=== PATIENT | male | born 1960 | race Caucasian/White ===

== ENCOUNTER → 2018-11-12 | Outpatient (CLI) | payer BC ==
--- NOTE | 2018-11-12 15:55 | PCVCIMAG ---
APPROVED REPORT Study performed: 11/12/2018 14:41:41 EXAM: Comprehensive 2D, Doppler, and color-flow Echocardiogram Patient Location: Echo lab Status: routine BSA: 2.46 HR: 60 bpmBP: 140/100 mmHg Rhythm: NSR Other Information Study Quality: Technically Difficult Indications Palpitations Hypertension/HDD Dizziness 2D Dimensions IVSd: 12.14 (7-11mm)LVOT Diam: 21.37 (18-24mm) LVDd: 44.57 mm PWd: 8.41 (7-11mm)Ascending Ao: 37.48 (22-36mm) LVDs: 23.44 (25-40mm) Left Atrium: 33.66 (27-40mm) Aortic Root: 34.18 mm LV Single Plane 4CH: 56.79 % LV Single Plane 2CH: 56.65 % Biplane EF: 57.8 % Volumes Left Atrial Volume (Systole) Single Plane 4CH: 26.47 mLSingle Plane 2CH: 48.02 mL LA ESV Index: 13.00 mL/m2 Aortic Valve AoV Peak Burak.: 1.58 m/s AO Peak Gr.: 9.95 mmHg Mitral Valve E/A Ratio: 1.2 MV Decel. Time: 212.97 ms MV E Max Burak.: 0.78 m/s MV A Burak.: 0.65 m/s Pulmonary Valve PV Peak Gr.: 1.78 mmHg Pulmonary Vein P Vein S: 0.45 m/sP Vein A: 0.31 m/s P Vein D: 0.38 m/sP Vein A Dur.: 86.5 msec P Vein S/D Ratio: 1.18 Left Ventricle The left ventricle is normal size. There is normal LV segmental wall motion. There is normal left ventricular wall thickness. Left ventricular systolic function is normal. The left ventricular ejection fraction is within the normal range. LVEF is 55-60%. The left ventricular diastolic function is normal. Right Ventricle The right ventricle is normal size. The right ventricular systolic function is normal. Atria The left atrium size is normal. The right atrium size is normal. Aortic Valve The aortic valve is normal in structure. No aortic regurgitation is present. There is no aortic valvular stenosis. Mitral Valve The mitral valve is normal in structure. There is no mitral valve regurgitation noted. No evidence of mitral valve stenosis. Tricuspid Valve The tricuspid valve is normal in structure. There is no tricuspid valve regurgitation noted. Pulmonic Valve The pulmonary valve is normal in structure. There is no pulmonic valvular regurgitation. Great Vessels The aortic root is normal in size. IVC is normal in size and collapses >50% with inspiration. Pericardium There is no pericardial effusion. <Conclusion> The left ventricle is normal size. There is normal left ventricular wall thickness. Left ventricular systolic function is normal. The left ventricular diastolic function is normal. The right ventricle is normal size. The left atrium size is normal. The aortic valve is normal in structure. The mitral valve is normal in structure. There is no tricuspid valve regurgitation noted.
--- NOTE | 2018-11-12 15:58 | PCVCIMAG ---
APPROVED REPORT Study performed: 11/12/2018 15:07:26 Exam: Stress Echocardiogram Indication: Dizziness, Palpitations Patient Location: Echo lab Stress Nurse: Elena Cisse RN Status: routine Ht: 6 ft 2 in HR: 60 bpm BP: 140/100 mmHg Rhythm: NSR Procedure The patient underwent an Exercise Stress Test using the Jacob Protocol. Blood pressure, heart rate, and EKG were monitored. An Echocardiogram was performed by animal health technician in four stages in quad fashion. At peak stress, four selected images were obtained and placed side by side with resting images for comparison. Stress Test Details Stress Test: Exercise stress testing was performed using a Jacob protocol. HR Resting HR: 81 bpmMax Heart Rate (APMHR): 163 bpm Max HR Achieved: 190 bpmTarget HR (85% APMHR): 138 bpm % of APMHR: 116 Recovery HR: 115 bpm HR response to stress: Normal HR response to stress BP Resting BP: 140/100 mmHg Max BP: 190/90 mmHg Recovery BP: 166/100 mmHg BP response to stress: Normal blood pressure response to stress. ECG Resting ECG: Sinus Rhythm Stress ECG: Sinus Rhythm ST Change: Non-ischemic Recovery ECG: Sinus Rhythm Clinical Reason for Termination: Maximal effort Exercise duration: 6 min sec Highest Stage Achieved: Stage 3: 3.4 mph at 14% grade. Exercise capacity: 7.00 METs Overall Exercise Capacity for Age: Poor Pre-Stress Echo The resting Echocardiogram showed normal left ventricular contractility with an estimated Ejection Fraction of about 55-60%. Normal wall motion in all segments on baseline images. Post-Stress Echo The stress Echocardiogram showed normal left ventricular contractility with an estimated Ejection Fraction of about 60-65%. Normal augmentation of wall motion in all segments on post stress images. Clinical No clinical or ECG evidence for ischemia. Conclusion Clinical Response: Non-ischemic Exercise Capacity: Below Average Stress ECG Response: Non-ischemic Stress Echo Images: Non-ischemic The left ventricle is normal in size and wall thickness in both the rest and stress images. Other Information Study Quality: Adequate <Conclusion> The left ventricle is normal in size and wall thickness in both the rest and stress images.
--- NOTE | 2018-11-12 19:02 | PCVCIMAG ---
EXAM: BILATERAL SUPERFICIAL VENOUS DUPLEX INDICATION: Leg pain and swelling. FINDINGS: Right leg: No thrombus in the common femoral, main femoral, or popliteal veins. These veins are compressible. Right Great Saphenous Vein: At the saphenofemoral junction the diameter is 7.6 mm, in the mid thigh it is 6.2 mm, and in the calf it is 4.6 mm. There is not significant venous insufficiency/reflux throughout. Venous insufficiency/reflux duration is 0 seconds. Right Small Saphenous Vein: At the saphenopopliteal junction the diameter is 3.6 mm, and in the calf it is 4.0 mm. There is not significant venous insufficiency/reflux throughout. Venous insufficiency/reflux duration is 0 seconds. There is not a cranial extension present. Left leg: No thrombus in the common femoral, main femoral, or popliteal veins. These veins are compressible. Left Great Saphenous Vein: At the saphenofemoral junction the diameter is 6.5 mm, in the mid thigh it is 6.0 mm, and in the calf it is 4.4 mm. There is not significant venous insufficiency/reflux throughout. Venous insufficiency/reflux duration is 0.3 seconds. Left Small Saphenous Vein: At the saphenopopliteal junction the diameter is 2.6 mm, and in the calf it is 3.4 mm. There is not significant venous insufficiency/reflux throughout. Venous insufficiency/reflux duration is 0 seconds. There not a cranial extension present. IMPRESSION: Right Great Saphenous Vein: No significant venous insufficiency/reflux is present as noted above. Right Small Saphenous Vein: No significant venous insufficiency/reflux is present as noted above. Left Great Saphenous Vein: No significant venous insufficiency/reflux is present as noted above. Left Small Saphenous Vein: No significant venous insufficiency/reflux is present as noted above. LOC:[id number]
== END | disposition home or self-care (01) ==
LOC: PCVCIMAG 14:55
PROVIDERS: ATTEND Internal Medicine Cardiovascular Disease
DX: M79.89 Other specified soft tissue disorders (principal); R42 Dizziness and giddiness; R07.9 Chest pain, unspecified; R00.2 Palpitations; E78.00 Pure hypercholesterolemia, unspecified; Z79.899 Other long term (current) drug therapy; Z87.891 Personal history of nicotine dependence; Z72.89 Other problems related to lifestyle; Z79.82 Long term (current) use of aspirin
CPT/HCPCS: 93306; 93351; 93880; 93970